=== PATIENT | female | born 1970 | race African-American/Black ===

== ENCOUNTER 2022-08-15 07:56 | Emergency (ER) | payer MEDICAID ==
[~2022-08-15] VITALS: Ht 154.9 cm; Wt 79.5 kg
[2022-08-15] MEDS ORDERED: FLUORESCEIN SODIUM 1MG/STRIP BOTHEYE ONE (09:15)
[2022-08-15] MEDS ORDERED: TETRACAINE 0.5% OPHTH DROPS 4ML BOTHEYE ONE (09:15)
[2022-08-15] MEDS ORDERED: ACET-2708 MT (10:01)
[2022-08-15] MEDS ORDERED: GUAI600T26 MT (10:01)
[2022-08-15 10:40] VITALS: BP 156/98
== END 2022-08-15 10:50 | disposition home or self-care (01) ==
LOC: ER 07:56
DX: J32.9 Chronic sinusitis, unspecified (principal); I10 Essential (primary) hypertension; J45.909 Unspecified asthma, uncomplicated; Z13.9 Encounter for screening, unspecified; Z98.890 Other specified postprocedural states
CPT/HCPCS: 99283

== ENCOUNTER 2023-08-17 12:19 | Emergency (ER) | payer MEDICAID ==
[~2023-08-17] VITALS: Ht 165.1 cm; Wt 91.0 kg
[~2023-08-17 12:19] MED LIST: ACET-2708 MT; GUAI600T26 MT
[2023-08-17 12:25] VITALS: O2SAT 100
[2023-08-17] MEDS ORDERED: P50 MT (12:52)
[2023-08-17 13:01] VITALS: PULSE 100; RESP 20
[2023-08-17] MEDS: IPRATROPIUM BROMIDE (0.02%) 0.5MG/2.5ML NEB HHN STA (13:01)
[2023-08-17] MEDS: ALBUTEROL (0.083%) 2.5MG/3ML NEB HHN STA (13:01)
[2023-08-17] MEDS: LORAZEPAM 1MG TABLET PO ONE (13:11)
[2023-08-17] MEDS ORDERED: AMOX1TAB16 MT (13:30)
[2023-08-17 13:45] VITALS: BP 144/80; PULSE 100; RESP 20; TEMP 98.2
== END 2023-08-17 14:51 | disposition home or self-care (01) ==
LOC: ER 12:19
DX: J45.901 Unspecified asthma with (acute) exacerbation (principal); F41.1 Generalized anxiety disorder; I10 Essential (primary) hypertension; Z90.710 Acquired absence of both cervix and uterus
CPT/HCPCS: 99283; Z7610 ×3; 94002